=== PATIENT | male | born 1950 | race Caucasian/White ===

== ENCOUNTER 2023-08-18 13:23 | Emergency (ER) | payer MEDICARE, OTHER, SELFPAY ==
[2023-08-18 13:24] VITALS: BP 166/95
[2023-08-18 13:48] LABS: % Basophils 1.5 % (0-2); % Eosinophils 4.4 % (0-6); % Immature Granulocytes 0.3 % (0-0.5); % Lymphocytes 29.2 % (20.5-51.1); % Monocytes 8.5 % (1.7-9.3); % Neutrophils 56.1 % (42.2-75.2); Absolute Basophils 0.1 10^3/uL (0-0.2); Absolute Eosinophils 0.3 10^3/uL (0-0.7); Absolute Lymphocytes 2.1 10^3/uL (1.2-3.4); Absolute Monocytes 0.6 10^3/uL (0.1-0.6); Absolute Neutrophils 4.1 10^3/uL (1.4-6.5); Hematocrit 48.9 % (39.0-52.0); Hemoglobin 17.3 g/dL (13.0-18.0); Mean Corp Hgb Conc. 35.4 g/dL (33.0-37.0); Mean Corpuscular Hgb 31.3 pg (27.0-31.0); Mean Corpuscular Volume 88.4 fL (80.0-94.0); Mean Platelet Volume 10.6 fL (7.4-10.4); Nucleated Red Blood Cells % 0 % (-); Platelet Count 199 10^3/uL (130-400); Red Blood Cell Count 5.53 10^6/uL (4.70-6.10); Red Cell Dist. Width 12.8 % (11.5-14.5); White Blood Cell Count 7.3 10^3/uL (4.8-10.8)
[2023-08-18 13:55] LABS: INR 1.01; PT 13.3 Sec (11.4-14.6)
[2023-08-18 13:56] LABS: APTT 24.8 Sec (23.4-35.0)
[2023-08-18 13:59] LABS: ALT (SGPT) 27 U/L (0-50); AST (SGOT) 29 U/L (17-59); Albumin 4.7 g/dl (3.5-5.0); Alkaline Phosphatase 68 U/L (38-126); Blood Urea Nitrogen 19 mg/dl (9-20); Calcium 9.9 mg/dl (8.4-10.2); Carbon Dioxide 25 mmol/L (22-30); Chloride 102 mmol/L (98-107); Glucose 180 mg/dl (70-99); Potassium 4.1 mmol/L (3.5-5.1); Sodium 138 mmol/L (135-145); Total Bilirubin 0.8 mg/dl (0.2-1.3); Total Protein 7.4 g/dl (6.3-8.2); eGFR > 60.00
[2023-08-18 14:09] LABS: Troponin I < 0.012 ng/ml
--- NOTE | 2023-08-18 15:00 | ED.CVA ---
History of Present Illness
General
Chief Complaint: CVA/TIA Symptoms
Time Seen by Provider: 08/18/23 14:40
Onset of Stroke Symptoms
Onset of symptoms known: Yes
Date of onset of symptoms: 08/17/23
Travel History
Have you had any contact with someone who has COVID-19?: No
Do you have any symptoms of coronavirus? Fever > 100 degrees, chills, cough, shortness of breath, sore throat, loss of taste or smell, muscle aches, or headache?: No
History of Present Illness
History of Present Illness:
72-year-old male who presents to the emergency department for evaluation of right-sided facial droop that began last night. He is uncertain of exact time, spouse noted the facial asymmetry this morning. He states it is comparable to when he had
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 Denies any vision changes, extremity paresthesias, speech deficit, or swallowing difficulty. Denies any outdoor exposure, no history of tick bites to his knowledge. No recent fevers or
chills
Past History
Past History
ED Past Medical History: HTN, Hypercholesterolemia and NIDDM
ED Past Surgical History: Other
Social History
Tobacco: Non-smoker
Drug: None
Personal:
Living: with family
Employment: Retired
Family History
Family History: Other
Review of Systems
Review of Systems
Allergies reviewed?: Yes
All Other Systems: ROS reviewed and negative except as documented in HPI and ROS
Phy Exam
Physical Exam
Physical Exam:
GEN: Well appearing, NAD, WDWN
HEENT: Oral mucosa moist, no scleral icterus, no nasal congestion
Cardiac: Regular rate
Lung: No respiratory distress, no tachypnea
MSK: No gross deformity or injuries
Skin: Good color, no pallor or jaundice, no rashes
Neuro: AO x3; right-sided facial droop noted, minimal correction noted, patient is able to raise eyebrows symmetrically however it appears to be asymmetric at rest, normal facial sensation throughout, there does appear to be a mild tongue deviation
to the left however I suspect this is related to his inability to open the mouth on the right side. BUE strength 5/5 in all marshall, sensation intact and symmetric. BLE strength 5/5 in all marshall, sensation intact and symmetric
Psych: Calm, cooperative
Course
Orders/Labs/Results
Orders:
Orders
08/18/23 13:27
CT Head W/o Iv Contrast Urgent
Comment:
Reason For Exam: facial droop
08/18/23 13:37
Complete Blood Count/With Diff Urgent
Comprehensive Metabolic Panel Urgent
PTT Urgent
Prothrombin Time Urgent
Troponin I Urgent
08/18/23 15:00
NEUROLOGY CONSULT Urgent
Consulting Provider: Koko Staples
Was physician already notified: Yes
Abnormal Lab Results
08/18/23
13:37
MCH 31.3 H pg
(27.0-31.0)
MPV 10.6 H fL
(7.4-10.4)
Glucose 180 H mg/dl
(70-99)
08/18/23 13:37
08/18/23 13:37
Vital Signs
Initial and Last Documented VS:
Initial Vital Signs
Temp Pulse Resp BP Pulse Ox
98.2 F 72 18 166/95 95
08/18/23 13:24 08/18/23 13:24 08/18/23 13:24 08/18/23 13:24 08/18/23 13:24
Last Documented Vital Signs
Temp Pulse Resp BP Pulse Ox
98.2 F 72 18 166/95 95
08/18/23 13:24 08/18/23 13:24 08/18/23 13:24 08/18/23 13:24 05/09/24 13:24
MDM/Problems Addressed
MDM/Problems Addressed:
Patient seen in consultation by neurology due to subtle nature of the facial droop concerning for Lange's palsy versus stroke. Neurology supports the diagnosis of Lange's palsy and we will start him on antivirals and steroids.
*Critical Care Note
Total Time (30-74mins, 75-104mins- exclusive of procedures): Not Applicable
ED Attending Note
-
Portions of this chart may have been created with voice recognition software.� Occasional wrong word or��sound alike� substitutions may have occurred due to the inherent limitations of voice recognition software.
Discharge Plan
Departure
Patient Disposition: Home (Routine Discharge)
Date of Disposition: 08/18/23
Time of Disposition: 15:21
Patient with high blood pressure during this ER visit?: No
Discharge Problem:
Right-sided Lange's palsy
Instructions: Lange's Palsy (DC)
Prescriptions:
New
prednisone 50 mg tablet
50 mg PO DAILY 7 Days Qty: 7 0RF
valacyclovir 1 gram tablet
1,000 mg PO TID 7 Days Qty: 21 0RF
No Action
prednisone 20 MG tablet
20 mg PO DAILY 6 Days Qty: 18 0RF
Rx Instructions:
Take in the morning
valacyclovir 500 MG tablet
1,000 mg PO TID 7 Days Qty: 40 0RF
white petrolatum-mineral oil [Artificial Tears (michelle/min)] 3.5 GM ointment
3.5 gm OP DAILY Qty: 1 0RF
Rx Instructions:
Apply a small amount into your left eye at bedtime until [place] Palsy gone
Referrals:
Adis Sahni MD [Family Provider] -
Interventions
Interventions:
*Risk Screen - Suicide Last Done: 08/18/23 13:24
*General Assessment Last Done: 08/18/23 13:24
*Neglect/Abuse Screening Last Done: 08/18/23 13:24
ED- Fall Risk Assessment Last Done: 08/18/23 14:51
*ED COVID-19 Vaccine History Last Done: 08/18/23 13:24
*Nursing Disposition Last Done: 08/18/23 15:40
ED- Pulmonary Assessment Last Done: 08/18/23 14:51
ED- Neurological Assessment Last Done: 08/18/23 14:51
ED- Cardiac Assessment Last Done: 08/18/23 14:51
ED Swallowing Screen Last Done: 08/18/23 14:51
Discharge Date and Time
Discharge Date/Time: 08/18/23 16:08
Print Language: LIBERIAN
--- NOTE | 2023-08-18 15:20 | CON.NEURO4 ---
Consultation - Neurology 4
-
CONSULTING PHYSICIAN: Edgard Staples
REFERRING PHYSICIAN: ER
DICTATED BY: Edgard Staples
DATE/TIME OF REQUEST: 08/18/23
DATE/TIME OF CONSULTATION: 08/18/23
Reason for Consultation: Right facial weakness
History of Present Illness:
Patient is a right handed man with history of diabetes, hypertension presenting to hospital with right facial weakness. Onset was around 1 day ago, more severe symptoms this morning, couldn't whistle, dribbling water. No headache or facial
paresthesia, no facial pain, no rash, no recent illnesses. No history of stroke or TIA. Had a left sided Lagne's Palsy about 3 years ago seen in our ED for this. No weakness of right arm or leg or limb paresthesia, no change in gait. No history
of any bug bites or target shaped rash.
Past Medical History: Diabetes, hypertension, left sided Lange's palsy
Surgical History: Bilateral eyelid surgery, septoplasty
Family History: Non-contributory
Social History: Retired, and lives with his , social small amount alcohol, no tobacco, was in [employer]
Allergies: No known drug allergies
Review of Symptoms:
Patient denies any fever, headache, chest pain, shortness of breath, GI or symptoms.
Physical Exam:
Well appearing elderly man, no facial rash, no head or neck trauma, eyes clear, neck no masses
Neurologic Examination:
The patient is awake, alert and oriented x 3. He is able to follow commands and answer questions appropriately. There is no aphasia or dysarthria. On cranial nerve assessment, pupils are 3 mm bilateral, round and reactive to light and
accommodation. Visual marshall are full. Extraocular movements are intact. Facial sensations are intact and bilaterally symmetrical, right forehead is smooth, weakness of orbicularis oculi closure, right facial weakness on smile and puffing out
cheeks. Decreased spontaneous blink on the right. Hearing is intact bilaterally to normal conversation volume. Tongue palate and uvula are midline. Sternocleidomastoid strengths are full bilaterally. Motor strengths are 5/5 bilateral upper and
lower extremities on medical research Gardiner scale. There is no drift or involuntary movement noted. Deep tendon reflexes are 2+ bilateral upper and lower extremities and Babinski is absent bilaterally. Sensations of pain, touch, temperature and
vibration are intact and bilaterally symmetrical. There was no extinction noted on double simultaneous stimulation. Coordination is intact by finger to nose bilaterally.
Neuro Imaging: CT head non contrast no acute findings, no acute infarct, no hemorrhage, no masses
Impressions
1. Right sided facial weakness, consistent with peripheral CN 7 palsy (Lange's Palsy), otherwise no neurologic findings so unlikely a pontine infarct
2. History of a previous left sided Lange's Palsy
3. Diabetes
4.
Recommendations:
1. Artificial tears to right eye 3 times a day and monitor for eye pain to prevent corneal abrasion from right eyelid closure weakness
2. Monitor for rash on the face
3. Prednisone 50 mg for 5-7 days along with 1000 mg TID Valacyclovir
4. Not seeing indication for further brain imaging
5. PCP follow up
Discussed patient care with: Patient and his , ED
== END 2023-08-18 16:08 | disposition home or self-care (01) ==
LOC: EMR 13:23
PROVIDERS: Emergency Medicine; CONSULT PHYSICIAN Student in an Organized Health Care Education/Training Program; EMERGENCY PHYSICIAN Emergency Medicine; FAMILY PHYSICIAN Internal Medicine Geriatric Medicine
DX: G51.0 Bell's palsy (principal)
CPT/HCPCS: 99284; 70450; 80053; 84484; 85025; 85610; 85730

== ENCOUNTER → 2024-05-28 13:51 | Outpatient (REF) | payer MEDICARE, OTHER, SELFPAY | LOC: PAVMRI 13:51 | PROVIDERS: ATTENDING PHYSICIAN Physical Medicine & Rehabilitation; FAMILY PHYSICIAN Internal Medicine Geriatric Medicine | DX: M54.16 Radiculopathy, lumbar region (principal) | CPT/HCPCS: 72148 ==